=== PATIENT | male | born 1980 | race Caucasian/White ===

== ENCOUNTER 2018-08-24 21:37 | Emergency (ER) | payer OTHER ==
[~2018-08-24] VITALS: Ht 167.6 cm; Wt 79.4 kg
[2018-08-24 21:41] VITALS: BP 111/79
--- NOTE | 2018-08-24 21:44 | NUR ---
TO LOBBY A/W BED, NIKOLAS KATZ NOTED
--- NOTE | 2018-08-24 23:11 | NUR ---
PT AMBULATED TO BED 3 AT THIS TIME
--- NOTE | 2018-08-24 23:26 | NUR ---
PT PRESENTS TO ED WITH C/O COUGH AND COLD SYMPTOMS X 4 DAYS. LUNG SOUNDS CLEAR TO ASCULTATION BILATERALLY. PT DENIES SOB, CP AT THIS TIME. RESPIRATIONS ARE EVEN AND UNLABORED. PT PLACED INTO BED, PENDING MD RUSS.
--- NOTE | 2018-08-24 23:28 | NUR ---
XRAY AT BEDSIDE.
[2018-08-25] MEDS ORDERED: KETOROLAC 30 MG/ML VIAL IM ONE (00:15)
[2018-08-25] MEDS ORDERED: ACETAMIN/CODEINE 120/12MG-5ML 5 ML UDC PO ONE (00:15)
--- NOTE | 2018-08-25 00:48 | NUR ---
PT RESTING. VSS. WILL CONTINUE TO MONITOR.
[2018-08-25 01:28] VITALS: BP 108/73
--- NOTE | 2018-08-25 01:29 | NUR ---
Patient discharged with v/s stable. Written and verbal after care instructions given and explained. Patient alert, oriented and verbalized understanding of instructions. Ambulatory with steady gait. All questions addressed prior to discharge. ID band removed. Patient advised to follow up with PMD. Rx of KYM AMIN given. Patient educated on indication of medication including possible reaction and side effects. Opportunity to ask questions provided and answered.
== END 2018-08-25 01:29 | disposition home or self-care (01) ==
LOC: MED 21:37
DX: J02.9 Acute pharyngitis, unspecified (principal); J06.9 Acute upper respiratory infection, unspecified; F17.290 Nicotine dependence, other tobacco product, uncomplicated
CPT/HCPCS: 71045; 96372; 99283; J1885

== ENCOUNTER 2018-09-10 19:07 | Emergency (ER) | payer OTHER ==
[~2018-09-10] VITALS: Ht 167.6 cm; Wt 79.9 kg
[2018-09-10 19:12] VITALS: BP 110/64
[2018-09-10 22:39] VITALS: BP 128/72
== END 2018-09-10 22:35 | disposition home or self-care (01) ==
LOC: MED 19:07
DX: J20.9 Acute bronchitis, unspecified (principal)
CPT/HCPCS: 99283

== ENCOUNTER 2019-05-26 22:29 | Emergency (ER) | payer OTHER ==
[~2019-05-26] VITALS: Ht 167.6 cm; Wt 72.6 kg
[2019-05-26 22:33] VITALS: BP 123/60
[2019-05-27 00:06] LABS: APPEARANCE,URINE CLEAR (CLEAR); BILIRUBIN,URINE NEGATIVE (NEGATIVE); BLOOD, URINE NEGATIVE (NEGATIVE); COLOR,URINE YELLOW (YELLOW); LEUKOCYTE ESTERASE ,URINE NEGATIVE (NEGATIVE); NITRITE, URINE NEGATIVE (NEGATIVE); UGLUCOSE NEGATIVE (NEGATIVE)
[2019-05-27 00:07] LABS: BASOPHILS # (AUTO) 0.1 K/uL (0.00-0.22); BASOPHILS % (AUTO) 1.2 % (0.0-2.0); EOSINOPHILS # (AUTO) 0.2 K/uL (0-0.4); EOSINOPHILS % (AUTO) 3.3 % (0.0-4.0); HEMATOCRIT 44.3 % (36-52); HEMOGLOBIN 14.4 g/dL (12.0-18.0); LYMPHOCYTES # (AUTO) 1.2 K/uL (2.0-11.5); LYMPHOCYTES % (AUTO) 18.2 % (20.5-51.1); MEAN CORPUSCULAR HEMOGLOBIN 26 pg (27-31); MEAN CORPUSCULAR HGB CONC 33 g/dL (33-37); MEAN CORPUSCULAR VOLUME 80.8 fL (80-94); MONOCYTES # (AUTO) 0.6 K/uL (0.8-1.0); NEUTROPHILS # (AUTO) 4.3 K/uL (1.8-7.7); NEUTROPHILS % (AUTO) 67.3 % (42.2-75.2); PLATELET COUNT (AUTO) 110 K/uL (140-450); RED BLOOD CELL COUNT(AUTO) 5.48 MIL/uL (4.20-6.10); RED CELL DISTRIBUTION WIDTH 13.7 % (11.6-13.7); WHITE BLOOD COUNT (AUTO) 6.4 K/uL (4.8-10.8)
[2019-05-27] MEDS: NACL 0.9% 1,000 ML IV ONE (00:12)
[2019-05-27] MEDS: ONDANSETRON 4 MG/2 ML VIAL IVP ONE (00:15)
[2019-05-27 00:16] LABS: RBC,URINE NONE SEEN /HPF (0-5); WBC,URINE 0-5 /HPF (0-5)
[2019-05-27] MEDS: KETOROLAC 30 MG/ML VIAL IVP ONE (00:16)
[2019-05-27 00:27] LABS: ANION GAP 10.2 (8-16); POTASSIUM 4.2 mmol/L (3.5-5.1)
[2019-05-27 00:33] LABS: ALBUMIN 4.3 g/dL (3.4-5.0); TOTAL BILIRUBIN 0.2 mg/dL (0.0-1.0)
[2019-05-27 01:38] VITALS: BP 123/60
[2019-05-27] MEDS: HYDROcodone/APAP 5/325 MG 1 TAB TAB PO ONE (01:39)
== END 2019-05-27 01:38 | disposition home or self-care (01) ==
LOC: MED 22:29
DX: K57.92 Diverticulitis of intestine, part unspecified, without perforation or abscess without bleeding (principal); Z86.39 Personal history of other endocrine, nutritional and metabolic disease; Z86.19 Personal history of other infectious and parasitic diseases
CPT/HCPCS: 36415; 74176; 80053; 81001; 83690; 85025; 96374; 96375; 99284; J1885; J2405; J7030

== ENCOUNTER 2019-05-30 19:51 | Emergency (ER) | payer OTHER ==
[~2019-05-30] VITALS: Ht 167.6 cm; Wt 74.8 kg
[2019-05-30 19:58] VITALS: BP 131/69
--- NOTE | 2019-05-30 19:58 | NUR ---
TO BED # 03 AMBULATORY
[2019-05-30] MEDS ORDERED: NACL 0.9% 1,000 ML IV SCH (20:06)
[2019-05-30] MEDS ORDERED: KETOROLAC 30 MG/ML VIAL IVP ONE (20:10)
[2019-05-30 20:21] LABS: BASOPHILS # (AUTO) 0.1 K/uL (0.00-0.22); EOSINOPHILS # (AUTO) 0.1 K/uL (0-0.4); EOSINOPHILS % (AUTO) 2.2 % (0.0-4.0); HEMATOCRIT 43.8 % (36-52); HEMOGLOBIN 14.1 g/dL (12.0-18.0); LYMPHOCYTES # (AUTO) 1.2 K/uL (2.0-11.5); LYMPHOCYTES % (AUTO) 20.1 % (20.5-51.1); MEAN CORPUSCULAR HEMOGLOBIN 26 pg (27-31); MEAN CORPUSCULAR HGB CONC 32 g/dL (33-37); MEAN CORPUSCULAR VOLUME 79.9 fL (80-94); MONOCYTES % (AUTO) 16.6 % (1.7-9.3); NEUTROPHILS # (AUTO) 3.7 K/uL (1.8-7.7); NEUTROPHILS % (AUTO) 60.1 % (42.2-75.2); PLATELET COUNT (AUTO) 100 K/uL (140-450); RED BLOOD CELL COUNT(AUTO) 5.48 MIL/uL (4.20-6.10); RED CELL DISTRIBUTION WIDTH 13.7 % (11.6-13.7); WHITE BLOOD COUNT (AUTO) 6.2 K/uL (4.8-10.8)
[2019-05-30 20:32] LABS: ANION GAP 9.5 (8-16); CARBON DIOXIDE 31.9 mmol/L (21-32); CREATININE 1.1 mg/dL (0.7-1.3); POTASSIUM 4.4 mmol/L (3.5-5.1)
[2019-05-30 20:39] LABS: ALBUMIN 4.3 g/dL (3.4-5.0); TOTAL BILIRUBIN 0.4 mg/dL (0.0-1.0)
--- NOTE | 2019-05-30 21:03 | NUR ---
Dr. Ramirez examining patient.
--- NOTE | 2019-05-30 21:07 | NUR ---
PATIENT PRESENTS TO ED WITH RASHES TO FLANK AREA. DENIES N/V/D; SKIN IS PINK/WARM/DRY; AAOX4 WITH EVEN AND STEADY GAIT; LUNGS CLEAR BL; HR EVEN AND REGULAR; PT DENIES ANY FEVER, CP, SOB, OR COUGH AT THIS TIME; PATIENT STATES PAIN OF 4/10 AT THIS TIME; VSS; PATIENT POSITIONED FOR COMFORT; HOB ELEVATED; BEDRAILS UP X2; BED DOWN. ER MD MADE AWARE OF PT STATUS.
[2019-05-30 21:22] VITALS: BP 130/66
--- NOTE | 2019-05-30 21:23 | NUR ---
Patient discharged with v/s stable. Written and verbal after care instructions given and explained. Patient alert, oriented and verbalized understanding of instructions. Ambulatory with steady gait. All questions addressed prior to discharge. ID band removed. Patient advised to follow up with PMD. Rx of MEDS GIVEN given. Patient educated on indication of medication including possible reaction and side effects. Opportunity to ask questions provided and answered.
== END 2019-05-30 21:23 | disposition home or self-care (01) ==
LOC: MED 19:51
DX: B02.9 Zoster without complications (principal); Z98.890 Other specified postprocedural states; Z86.19 Personal history of other infectious and parasitic diseases
CPT/HCPCS: 36415; 74176; 80053; 83690; 85025; 96374; 99284; J1885; J7030

== ENCOUNTER 2019-06-09 23:00 | Emergency (ER) | payer OTHER ==
[~2019-06-09] VITALS: Ht 167.6 cm; Wt 74.8 kg
[2019-06-09 23:15] VITALS: BP 114/68
--- NOTE | 2019-06-09 23:18 | NUR ---
TO LOBBY A/W BED, AMBULATORY
--- NOTE | 2019-06-10 01:30 | NUR ---
PT AMBULATED TO BED 03 WITH STEADY GAIT.
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
--- NOTE | 2019-06-10 02:45 | NUR ---
Dr. Montiel examining patient.
[2019-06-10] MEDS ORDERED: NACL 0.9% 1,000 ML IV SCH (02:56)
[2019-06-10] MEDS ORDERED: KETOROLAC 30 MG/ML VIAL IVP ONE (03:00)
--- NOTE | 2019-06-10 03:21 | NUR ---
PT TAKEN TO CT VIA WC.
--- NOTE | 2019-06-10 03:24 | NUR ---
PT RETURN FROM CT
[2019-06-10 03:51] LABS: BASOPHILS % (AUTO) 0.4 % (0.0-2.0); EOSINOPHILS # (AUTO) 0.2 K/uL (0-0.4); EOSINOPHILS % (AUTO) 2.7 % (0.0-4.0); HEMATOCRIT 45.4 % (36-52); HEMOGLOBIN 14.8 g/dL (12.0-18.0); LYMPHOCYTES # (AUTO) 3.2 K/uL (2.0-11.5); LYMPHOCYTES % (AUTO) 36.4 % (20.5-51.1); MEAN CORPUSCULAR HEMOGLOBIN 26 pg (27-31); MEAN CORPUSCULAR HGB CONC 33 g/dL (33-37); MEAN CORPUSCULAR VOLUME 81.1 fL (80-94); MONOCYTES # (AUTO) 0.9 K/uL (0.8-1.0); MONOCYTES % (AUTO) 9.6 % (1.7-9.3); NEUTROPHILS # (AUTO) 4.5 K/uL (1.8-7.7); NEUTROPHILS % (AUTO) 50.9 % (42.2-75.2); PLATELET COUNT (AUTO) 138 K/uL (140-450); WHITE BLOOD COUNT (AUTO) 8.9 K/uL (4.8-10.8)
[2019-06-10 03:54] LABS: APPEARANCE,URINE CLEAR (CLEAR); BILIRUBIN,URINE NEGATIVE (NEGATIVE); BLOOD, URINE NEGATIVE (NEGATIVE); COLOR,URINE YELLOW (YELLOW); LEUKOCYTE ESTERASE ,URINE NEGATIVE (NEGATIVE); NITRITE, URINE NEGATIVE (NEGATIVE); UGLUCOSE NEGATIVE (NEGATIVE)
[2019-06-10 04:00] LABS: ANION GAP 12.9 (8-16); CARBON DIOXIDE 30.7 mmol/L (21-32); CREATININE 0.9 mg/dL (0.7-1.3); POTASSIUM 3.6 mmol/L (3.5-5.1)
[2019-06-10 04:05] LABS: ALBUMIN 4.6 g/dL (3.4-5.0); TOTAL BILIRUBIN 0.4 mg/dL (0.0-1.0)
[2019-06-10 05:38] VITALS: BP 100/62
--- NOTE | 2019-06-10 05:38 | NUR ---
Patient discharged with v/s stable. Written and verbal after care instructions given and explained. Patient alert, oriented and verbalized understanding of instructions. Ambulatory with steady gait. All questions addressed prior to discharge. ID band removed. Patient advised to follow up with PMD. Rx of [place] given. Patient educated on indication of medication including possible reaction and side effects. Opportunity to ask questions provided and answered.
== END 2019-06-10 05:38 | disposition home or self-care (01) ==
LOC: MED 23:00
DX: B02.29 Other postherpetic nervous system involvement (principal); R10.9 Unspecified abdominal pain; F17.200 Nicotine dependence, unspecified, uncomplicated
CPT/HCPCS: 36415; 74176; 80053; 81003; 83690; 85025; 96374; 99284; J1885; J7030

== ENCOUNTER 2020-03-19 12:23 | Emergency (ER) | payer OTHER ==
[~2020-03-19] VITALS: Ht 167.6 cm; Wt 77.1 kg
[2020-03-19 12:24] VITALS: BP 132/87
--- NOTE | 2020-03-19 12:27 | NUR ---
PT AMBULATED TO BED 4
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
--- NOTE | 2020-03-19 12:43 | NUR ---
[place] PD at bedside interveiwin pt
[2020-03-19] MEDS ORDERED: LIDOCAINE/EPI 1% 1:100000 20 ML VIAL INJ ONE (12:45)
--- NOTE | 2020-03-19 13:40 | NUR ---
Dr. Mccall at bedside for laceration repair.
[2020-03-19] MEDS ORDERED: BACITRACIN OINT 500 UNITS/GM PKT TP ONE (13:55)
--- NOTE | 2020-03-19 14:01 | NUR ---
PLACED BACITRACIN AND WOUND DRESSING ON PT
--- NOTE | 2020-03-19 14:19 | NUR ---
Patient discharged with v/s stable. Written and verbal after care instructions given and explained. Patient alert, oriented and verbalized understanding of instructions. Ambulatory with steady gait. All questions addressed prior to discharge. ID band removed. Patient advised to follow up with PMD. Rx of BACITRACIN, IBUPROFEN AND KEFLEX given. Patient educated on indication of medication including possible reaction and side effects. Opportunity to ask questions provided and answered.
[2020-03-19 14:20] VITALS: BP 129/84
== END 2020-03-19 14:19 | disposition home or self-care (01) ==
LOC: MED 12:23
DX: S31.62 Laceration with foreign body of abdominal wall with penetration into peritoneal cavity (principal); I83.813 Varicose veins of bilateral lower extremities with pain; X99.1XXA Assault by knife, initial encounter; Y93.89 Activity, other specified; Y92.89 Other specified places as the place of occurrence of the external cause; Y99.8 Other external cause status
CPT/HCPCS: 12001; 90471; 90715; 99283; J2001

== ENCOUNTER 2020-03-30 14:00 | Emergency (ER) | payer OTHER ==
[~2020-03-30] VITALS: Ht 167.6 cm; Wt 77.1 kg
[2020-03-30 14:06] VITALS: BP 99/72
--- NOTE | 2020-03-30 14:10 | NUR ---
PT AMBULATES TO BED 5 WITH STEADY GAIT.
--- NOTE | 2020-03-30 14:19 | NUR ---
REMOVAL OF ABDOMINAL SUTURE, PT AWAKE, ALERT, AFIBRILE , AMBULATORY WITH STEADY GAIT. PMHX HEP C.
--- NOTE | 2020-03-30 14:29 | NUR ---
SUZY ZAMARRIPA AT BEDSIDE EVALUATING PT.
[2020-03-30] MEDS ORDERED: BACITRACIN OINT 500 UNITS/GM PKT TP ONE (14:35)
[2020-03-30 14:49] VITALS: BP 134/80
--- NOTE | 2020-03-30 14:50 | NUR ---
Patient discharged with v/s stable. Written and verbal after care instructions given and explained regarding wound care. Patient alert, oriented and verbalized understanding of instructions. Ambulatory with steady gait. All questions addressed prior to discharge. ID band removed. Patient advised to follow up with PMD. Rx of tramadol given. Patient educated on indication of medication including possible reaction and side effects. Opportunity to ask questions provided and answered.
--- NOTE | 2020-03-30 14:51 | NUR ---
APPLIED BACITRACIN OINTMENT ON ABRASION ON BILATERAL KNEES WELL SUTURE SITE INSTRUCTED BY SUZY ZAMARRIPA.
== END 2020-03-30 14:50 | disposition home or self-care (01) ==
LOC: MED 14:00
DX: S31.114D Laceration without foreign body of abdominal wall, left lower quadrant without penetration into peritoneal cavity, subsequent encounter (principal); Z98.890 Other specified postprocedural states; X58.XXXD Exposure to other specified factors, subsequent encounter
CPT/HCPCS: 99283

== ENCOUNTER 2020-11-07 12:01 | Emergency (ER) | payer OTHER ==
[~2020-11-07] VITALS: Ht 167.6 cm; Wt 74.8 kg
[2020-11-07 12:19] VITALS: BP 144/75
[2020-11-07 13:13] VITALS: BP 144/75
== END 2020-11-07 13:14 | disposition home or self-care (01) ==
LOC: MED 12:01
DX: S01.111A Laceration without foreign body of right eyelid and periocular area, initial encounter (principal); Z98.890 Other specified postprocedural states; Y04.0XXA Assault by unarmed brawl or fight, initial encounter; Y93.89 Activity, other specified; Y92.89 Other specified places as the place of occurrence of the external cause; Y99.8 Other external cause status
CPT/HCPCS: 99283

== ENCOUNTER 2021-11-14 22:23 | Emergency (ER) | payer OTHER ==
[~2021-11-14] VITALS: Ht 167.6 cm; Wt 83.5 kg
[2021-11-14 22:28] VITALS: BP 114/72
--- NOTE | 2021-11-14 22:32 | NUR ---
PT IN LOBBY.
[2021-11-14 23:43] LABS: BASOPHILS % (AUTO) 0.4 % (0.0-2.0); EOSINOPHILS # (AUTO) 0.3 K/uL (0-0.4); EOSINOPHILS % (AUTO) 4.6 % (0.0-4.0); HEMATOCRIT 40.9 % (36-52); HEMOGLOBIN 13.6 g/dL (12.0-18.0); LYMPHOCYTES # (AUTO) 2.2 K/uL (2.0-11.5); LYMPHOCYTES % (AUTO) 32.8 % (20.5-51.1); MEAN CORPUSCULAR HEMOGLOBIN 26 pg (27-31); MEAN CORPUSCULAR HGB CONC 33 g/dL (33-37); MEAN CORPUSCULAR VOLUME 79.1 fL (80-94); MONOCYTES # (AUTO) 0.8 K/uL (0.8-1.0); MONOCYTES % (AUTO) 11.2 % (1.7-9.3); NEUTROPHILS # (AUTO) 3.5 K/uL (1.8-7.7); PLATELET COUNT (AUTO) 140 K/uL (140-450); RED BLOOD CELL COUNT(AUTO) 5.17 MIL/uL (4.20-6.10); RED CELL DISTRIBUTION WIDTH 13.4 % (11.6-13.7); WHITE BLOOD COUNT (AUTO) 6.8 K/uL (4.8-10.8)
[2021-11-15] LABS: ALBUMIN 4.1 g/dL (3.4-5.0); ANION GAP 12.6 (8-16); CARBON DIOXIDE 29.4 mmol/L (21-32); CREATININE 0.8 mg/dL (0.6-1.3); TOTAL BILIRUBIN 0.2 mg/dL (0.0-1.0)
[2021-11-15 00:50] VITALS: BP 114/72
--- NOTE | 2021-11-15 00:50 | NUR ---
Patient discharged with v/s stable. Written and verbal after care instructions given and explained. Patient verbalized understanding. Ambulatory with steady gait. All questions addressed prior to discharge. Advised to follow up with PMD.
== END 2021-11-15 00:50 | disposition home or self-care (01) ==
LOC: MED 22:23
DX: R07.89 Other chest pain (principal)
CPT/HCPCS: 36415; 71045; 80053; 84484; 85025; 93005; 99285

== ENCOUNTER 2023-03-14 08:02 | Emergency (ER) | payer OTHER ==
[~2023-03-14] VITALS: Ht 167.6 cm; Wt 79.4 kg
[2023-03-14 08:09] VITALS: BP 117/70
--- NOTE | 2023-03-14 08:16 | NUR ---
pt ambulatory to bed 05
--- NOTE | 2023-03-14 08:23 | NUR ---
MD DUVAL AT BEDSIDE FOR EVALUATION
[2023-03-14] MEDS ORDERED: KETOROLAC 60 MG/2 ML VIAL IM ONE (08:30)
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
[2023-03-14] MEDS ORDERED: IBUP-2213 PO (09:51)
[2023-03-14] MEDS ORDERED: ATA25 PO (09:51)
--- NOTE | 2023-03-14 09:58 | NUR ---
Patient discharged with v/s stable. Written and verbal after care instructions FOR EYE CONTUSION given and explained. Patient alert, oriented and verbalized understanding of instructions. Ambulatory with steady gait. All questions addressed prior to discharge. ID band removed. Patient advised to follow up with PMD. Rx of ATARAX HCL AND IBUPROFEN given. Opportunity to ask questions provided and answered.
== END 2023-03-14 09:58 | disposition home or self-care (01) ==
LOC: MED 08:02
DX: H57.12 Ocular pain, left eye (principal); Z79.899 Other long term (current) drug therapy
CPT/HCPCS: 96372; 99283; J1885

== ENCOUNTER 2023-09-13 02:35 | Emergency (ER) | payer OTHER ==
[~2023-09-13] VITALS: Ht 182.9 cm; Wt 76.7 kg
[~2023-09-13 02:35] MED LIST: ATA25 PO; IBUP-2213 PO
[2023-09-13 02:46] VITALS: BP 125/77; PULSE 76; RESP 16; TEMP 97.9; O2SAT 99
[2023-09-13 03:25] VITALS: O2SAT 97
[2023-09-13] MEDS ORDERED: FLUORESCEIN OPTH STRIP 1 MG OP ONE (03:30)
[2023-09-13] MEDS ORDERED: TETRACAINE HCL/PF 0.5% OPTH 4 ML BTL OP ONE (03:30)
[2023-09-13] MEDS ORDERED: ALUMINUM HYD/MAG/SIMETHICONE 30 ML UDC PO ONE (04:00)
[2023-09-13] MEDS ORDERED: CARB15DR61 RIGHT EAR (04:07)
[2023-09-13 04:47] VITALS: BP 125/77; PULSE 76; RESP 16; TEMP 97.9; O2SAT 97
== END 2023-09-13 04:47 | disposition home or self-care (01) ==
LOC: MED 02:35
DX: S09.302A Unspecified injury of left middle and inner ear, initial encounter (principal); H61.21 Impacted cerumen, right ear; K21.9 Gastro-esophageal reflux disease without esophagitis; S09.90XA Unspecified injury of head, initial encounter; Z79.899 Other long term (current) drug therapy; Z79.1 Long term (current) use of non-steroidal anti-inflammatories (NSAID); Y08.89XA Assault by other specified means, initial encounter; Y93.89 Activity, other specified; Y92.89 Other specified places as the place of occurrence of the external cause; Y99.8 Other external cause status
CPT/HCPCS: 99282